=== PATIENT | male | born 1970 | race Caucasian/White ===

== ENCOUNTER 2020-05-29 13:17 | Emergency (ER) | payer MEDICAID, SELFPAY ==
[~2020-05-29] VITALS: Ht 172.7 cm; Wt 80.7 kg
[2020-05-29 13:25] VITALS: BP_SYST 168
[2020-05-29 14:24] VITALS: BP_SYST 168
== END 2020-05-29 14:21 | disposition home or self-care (01) ==
LOC: SED 13:17
DX: R00.2 Palpitations (principal); F41.9 Anxiety disorder, unspecified
CPT/HCPCS: 93005; 99283

== ENCOUNTER 2020-07-11 17:46 | Emergency (ER) | payer MEDICAID, SELFPAY ==
[~2020-07-11] VITALS: Ht 162.6 cm; Wt 88.0 kg
[2020-07-11 17:54] VITALS: BP_SYST 163
[2020-07-11 18:20] VITALS: BP_SYST 157
== END 2020-07-11 18:30 | disposition home or self-care (01) ==
LOC: SED 17:46
DX: L03.116 Cellulitis of left lower limb (principal)
CPT/HCPCS: 99283

== ENCOUNTER 2022-04-26 22:28 | Emergency (ER) | payer MEDICAID ==
[~2022-04-26] VITALS: Ht 175.3 cm; Wt 87.1 kg
[2022-04-26 22:53] VITALS: BP_SYST 152
[2022-04-26] MEDS ORDERED: DIPHENHYDRAMINE INJ 50 MG/ML VIAL IM ONE (23:30)
[2022-04-26] MEDS ORDERED: predniSONE 20 MG TABLET PO ONE (23:30)
[2022-04-26] MEDS ORDERED: TRIA15CR4 TP (23:33)
[2022-04-26] MEDS ORDERED: PRED20TA PO (23:33)
[2022-04-26] MEDS ORDERED: DIPH25CA83 PO (23:33)
[2022-04-27 00:55] VITALS: BP_SYST 152
== END 2022-04-27 00:55 | disposition home or self-care (01) ==
LOC: SED 22:28
DX: L50.9 Urticaria, unspecified (principal); R21 Rash and other nonspecific skin eruption; Z79.899 Other long term (current) drug therapy
CPT/HCPCS: 99283; 96372; J7512; J1200